=== PATIENT | female | born 1965 | race African-American/Black ===

== ENCOUNTER → 2021-08-31 | Emergency (ER) | payer SELFPAY ==
[~2021-08-31] MED LIST: AZITHROMYCIN 500 MG INJ IVPB ONE; CEFTRIAXONE 1000 MG/VIAL ONE; MORPHINE 4 MG/ML SYR ONE; NA CHLORIDE 0.9% 1,000 ML ONE; NA CHLORIDE 0.9% 250 ML ONE; PANTOPRAZOLE 40 MG INJ ONE
--- OUTSIDE RECORDS SUMMARY | 2021-08-31 08:30 | XMS REPORT | Continuity of Care Document ---
:[address] [facility] t Address [address] [place] [address] Care Team Providers Name Role Phone Referred Attending Clinician Unavailable TATA Attending Clinician Unavailable MARIANO PAYTON Admitting Clinician Unavailable Physician, Primary or Family Admitting Clinician Unavailabl e Payers Payer Name Policy Type Policy Number Effective Date Expiration Date S ource Problems This patient has no known problems. Allergies, Adverse Reactions, Alerts Allergy Allergy Status Severity Reaction(s) Onset Inactive Treating Comm ents Source Name Type Date Date Clinician No Known DA Active U 2010-09 [facility] Allergie 0-28 Clear s 00:00: Vasquez [address] [place] [address] Medications This patient has no known medications. Procedures This patient has no known procedures. Encounters Start End Encounter Admission Attending Care Care Encounter Source Date/Time Date/Time Type Type Clinicians Facility Department ID 2021-03-19 2021-03-19 Outpatient JUSTICE Emperatriz PRAVEEN DIETRICH [id number] [facility] 12:00:00 12:00:00 Self [id number] [facility] 2020-02-28 2020-02-28 Outpatient JUSTICE PAYTON PRAVEEN DIETRICH [id number] [facility] 12:00:00 12:00:00 MELECIO [id number] Norma robledo [facility] Results This patient has no known results.
== END ==
LOC: ER 08:27
DX: Z02.9 Encounter for administrative examinations, unspecified (principal)

== ENCOUNTER 2024-05-17 11:22 | Emergency (ER) | payer OTHER ==
[2024-05-17] MEDS ORDERED: IBUPROFEN 400 MG TAB ONE (12:08)
[2024-05-17] MEDS ORDERED: BUPIVACAINE 0.5% PF 10 ML VIAL ONE (12:08)
[2024-05-17] MEDS ORDERED: HYDROCODONE/APAP 7.5/325 MG TAB ONE (12:09)
[2024-05-17] MEDS ORDERED: TDAP (DIPHTH,PERTUSS(ACELL),TET VAC) 0.5 ML VIAL IMVAC ONE (12:09)
[2024-05-17] MEDS ORDERED: LIDOCAINE 2% MPF 5 ML VIAL ONE (12:09)
--- NOTE | 2024-05-17 13:33 | EDPHYS ---
Physician Documentation [facility] Name: Rosita Ellington Age: 58 yrs Sex: Female : 1965 Arrival Date: 05/17/2024 Time: 11:22 Bed 10 Private MD: ED Physician Acosta Castaneda HPI: 05/17 12:00 This 58 yrs old Black Female presents to ER via Ambulatory with complaints of fish hook cp in finger. 12:00 The patient or guardian reports embedded fish hook right small finger that occurred at cp home while moving fishing gear. 12:00 Associated signs and symptoms: The patient has no apparent associated signs or symptoms.cp Historical: - Allergies: 11:36 No Known Allergies; ll1 - PMHx: 11:36 Asthma; Heart Murmur; ll1 - PSHx: 11:36 section; ll1 - Immunization history:: Adult Immunizations up to date, Last tetanus immunization: > 10 years ago. - Social history:: Smoking status: Patient denies any tobacco usage or history of. ROS: 12:05 Constitutional: HX per HPI cp Exam: 12:05 Head/Face: Normocephalic, atraumatic. cp 12:05 Constitutional: The patient appears in no acute distress, alert, awake, non-toxic, well developed, well nourished, anxious, uncomfortable, 12:05 Chest/axilla: Inspection: normal, 12:05 Cardiovascular: Rate: normal, 12:05 Respiratory: the patient does not display signs of respiratory distress, Respirations: normal, no use of accessory muscles, no retractions, labored breathing, is not present, 12:05 Abdomen/GI: Inspection: abdomen appears normal, 12:05 Musculoskeletal/extremity: Extremities: noted in the right small finger: embedded fish hook noted distal phalanx of right small finger, tender to palpation, minimal bleeding, digit neurovascular intact, ROM: full active range of motion, in the right small finger, Vital Signs: 11:37 BP 127 / 75; Pulse 64; Resp 17; Temp 97.9; Pulse Ox 97% ; Weight 92.99 kg; Height 5 ft. ll1 6 in. ; Pain 10/10; 11:37 Body Mass Index 33.09 (92.99 kg, 167.64 cm) ll1 11:37 Pain Scale: Adult ll1 Procedures: 13:30 Foreign Body Removal: a fishhook, from the distal phalanx right small finger, by push cp through and using lock cutter mejia removed. The patient tolerated the removal well. MDM: 11:40 Patient medically screened. cp 12:00 Differential diagnosis: open fracture, foreign body, nail injury, vascular injury. cp 13:31 Data reviewed: vital signs, nurses notes, and as a result, I will discharge patient. cp 13:31 Counseling: I had a detailed discussion with the patient and/or guardian regarding the cp historical points, exam findings, and any diagnostic results supporting the discharge/admit diagnosis, to return to the emergency department if symptoms worsen or persist or if there are any questions or concerns that arise at home. 13:31 Response to treatment: the patient's symptoms have resolved after treatment, and as a cp result, I will discharge patient. 05/17 11:51 Order name: Wound Care cp Administered Medications: 12:15 Drug: Hydrocodone-Acetaminophen PO (7.5 mg-325 mg) 1 tabs PO once; RASS on ADMIN: ll1 Combtv4, Very Agttd3, Agttd2, Rstlss1, AlertClm0, Drwsy-1, Lt Sdtn-2, Mod Sdtn-3, Dp Sdtn-4, UnArsble-5 {Note: pain 10/10, RASS 0.} Route: PO; 12:15 Drug: Boostrix Tdap IM 0.5 ml IM once; as a single dose Route: IM; Site: left deltoid; ll1 12:15 Drug: Ibuprofen PO 800 mg PO once Route: PO; ll1 Disposition Summary: 05/17/24 13:32 Discharge Ordered Notes: Location: Home cp Problem: new cp Symptoms: have improved cp Condition: Stable cp Diagnosis - Puncture wound with foreign body of finger without damage to nail - right small cp finger Followup: cp - With: Private Physician - When: 2 - 3 days - Reason: Wound Recheck Discharge Instructions: - Discharge Summary Sheet cp - Puncture Wound cp - Good Pine Removal cp Forms: - Medication Reconciliation Form cp - Antibiotic Education cp - Prescription Opioid Use cp - Patient Portal Instructions cp - Leadership Thank You Letter cp Prescriptions: - Anaprox DS 550 mg Oral Tablet - take 1 tablet ORAL route every 12 hours As needed; 20 tablet; Refills: 0, cp Product Selection Permitted - Doxycycline Monohydrate 100 mg Oral tablet - take 1 tablet ORAL route every 12 hours for 7 days; 14 tablet; Refills: 0, cp Product Selection Permitted Addendum: 05/24/2024 15:38 Co-signature as Attending Physician, Acosta Castaneda MD I agree with the assessment and c willett plan of care. Signatures: Dispatcher [employer] EDPA Acosta Castaneda MD MD cha Page, Corey, PA PA Sanjuanita Lombardo RN RN ll1 Corrections: (The following items were deleted from the chart) 05/18 09:58 09:57 Constitutional: HX per HPI cp cp
--- NOTE | 2024-05-17 13:33 | ER ---
Nurse's Notes [facility] Name: Rosita Ellington Age: 58 yrs Sex: Female : 1965 Arrival Date: 05/17/2024 Time: 11:22 Bed 10 Private MD: Diagnosis: Puncture wound with foreign body of finger without damage to nail-right small finger Presentation: 05/17 11:37 Chief complaint: Patient states: Fish hook to R hand 5th digit while cleaning up a 1 house just INTERN ARCHITECT. Coronavirus screen: Client denies travel out of the [place] in the last 14 days. At this time, the client does not indicate any symptoms associated with coronavirus-19. Ebola Screen: Patient denies travel to an Ebola-affected area in the 21 days before illness onset. Initial Sepsis Screen: Does the patient meet any 2 criteria? No. Patient's initial sepsis screen is negative. Does the patient have a suspected source of infection? No. Patient's initial sepsis screen is negative. Risk Assessment: Do you want to hurt yourself or someone else? Patient reports no desire to harm self or others. Onset of symptoms was May 17, 2024. 11:37 Method Of Arrival: Ambulatory 1 11:37 Acuity: ROGER 4 ll1 Triage Assessment: 11:37 General: Appears uncomfortable, Behavior is calm, cooperative, appropriate for age. ll1 Pain: Complains of pain in right hand Pain currently is 10 out of 10 on a pain scale. Quality of pain is described as aching, throbbing. Derm: Reports fish hook R hand 5th digit. Musculoskeletal: Circulation, motion, and sensation intact. Capillary refill < 3 seconds. Historical: - Allergies: 11:36 No Known Allergies; ll1 - PMHx: 11:36 Asthma; Heart Murmur; ll1 - PSHx: 11:36 section; ll1 - Immunization history:: Adult Immunizations up to date, Last tetanus immunization: > 10 years ago. - Social history:: Smoking status: Patient denies any tobacco usage or history of. Vital Signs: 11:37 BP 127 / 75; Pulse 64; Resp 17; Temp 97.9; Pulse Ox 97% ; Weight 92.99 kg; Height 5 ft. ll1 6 in. ; Pain 10/10; 11:37 Body Mass Index 33.09 (92.99 kg, 167.64 cm) 1 11:37 Pain Scale: Adult 1 ED Course: 11:25 Patient arrived in ED. ra3 11:36 Arm band placed on. ll1 11:38 Triage completed. 1 11:40 Acosta Schaeffer PA is PHCP. cp 11:40 Acosta Castaneda MD is Attending Physician. cp Administered Medications: 12:15 Drug: Hydrocodone-Acetaminophen PO (7.5 mg-325 mg) 1 tabs PO once; RASS on ADMIN: ll1 Combtv4, Very Agttd3, Agttd2, Rstlss1, AlertClm0, Drwsy-1, Lt Sdtn-2, Mod Sdtn-3, Dp Sdtn-4, UnArsble-5 {Note: pain 10/10, RASS 0.} Route: PO; 12:15 Drug: Boostrix Tdap IM 0.5 ml IM once; as a single dose Route: IM; Site: left deltoid; 1 12:15 Drug: Ibuprofen PO 800 mg PO once Route: PO; 1 Outcome: 13:32 Discharge ordered by . cp 14:04 Patient left the ED. hb Signatures: Acosta Schaeffer PA PA cp Denisse Odom RN RN Sanjuanita Mason RN RN [facility] Emmy Trujillo ra3
[2024-05-17 14:10] VITALS: BP 127/75; TEMP 97.9; O2SAT 97
== END 2024-05-17 14:04 | disposition home or self-care (01) ==
LOC: ER 11:22
DX: S61.246A Puncture wound with foreign body of right little finger without damage to nail, initial encounter (principal)
CPT/HCPCS: 96372; 99284; J2001

== ENCOUNTER 2025-01-11 08:33 | Inpatient (IN) | payer SELFPAY ==
[2025-01-11] MEDS ORDERED: IPRATROPIUM BROM 0.5MG/2.5ML ONE (09:23)
[2025-01-11] MEDS ORDERED: METHYLPREDNISOLONE 125 MG INJ ONE (09:23)
[2025-01-11] MEDS ORDERED: CEFTRIAXONE 2000 MG/VIAL ONE (09:24)
[2025-01-11] MEDS ORDERED: AZITHROMYCIN 500 MG INJ IVPB ONE (09:24)
[2025-01-11] MEDS ORDERED: FAMOTIDINE 20 MG/2 ML VIAL IV ONE (09:24)
[2025-01-11] MEDS ORDERED: NA CHLORIDE 0.9% 250 ML ONE (09:24)
[2025-01-11] MEDS ORDERED: NA CHLORIDE 0.9% 100 ML ONE (09:24)
[2025-01-11] MEDS ORDERED: LEVALBUTEROL 1.25 MG/3 ML NEB ONE (09:24)
[2025-01-11] MEDS ORDERED: NA CHLORIDE 0.9% 1,000 ML ONE (09:25)
--- NOTE | 2025-01-11 09:34 | RAD REPORT ---
EXAMINATION: TWO VIEW CHEST XR CLINICAL INDICATION: COUGH TECHNIQUE: 2 views of the chest was performed. COMPARISON: No prior exam. FINDINGS: Patchy airspace opacity is seen in the right middle lobe laterally likely representing pneumonia. Krystian gs otherwise clear. The heart is normal in size. No displaced fractures evident. IMPRESSION: Moderate right middle lobe pneumonia.
--- NOTE | 2025-01-11 09:38 | EDPHYS ---
Physician Documentation [facility] Name: Rosita Ellington Age: 59 yrs Sex: Female : 1965 Arrival Date: 01/11/2025 Time: 08:33 Bed 13 Private MD: ED Physician Acosta Castaneda HPI: 01/11 09:28 This 59 yrs old Black Female presents to ER via Ambulatory with complaints of Fever, caren Chest Pain, Breathing Difficulty. 09:28 The patient reports fever, that was measured at 101 degrees Fahrenheit. Onset: The caren symptoms/episode began/occurred 4 day(s) ago. Modifying factors: there are no obvious modifying factors. Associated signs and symptoms: Pertinent positives: chills, cough. Severity of symptoms: At their worst the symptoms were moderate in the emergency department the symptoms are unchanged. The patient has not experienced similar symptoms in the past. Historical: - Allergies: 08:38 No Known Allergies; ll1 - PMHx: 08:38 Asthma; Heart Murmur; ll1 - PSHx: 08:38 section; ll1 - Immunization history:: Adult Immunizations up to date. - Social history:: Smoking status: Patient denies any tobacco usage or history of. ROS: 09:32 Constitutional: Negative for fever, chills, and weight loss, Eyes: Negative for injury, caren pain, redness, and discharge, ENT: Negative for injury, pain, and discharge, Neck: Negative for injury, pain, and swelling, Cardiovascular: Negative for chest pain, palpitations, and edema, Abdomen/GI: Negative for abdominal pain, nausea, vomiting, diarrhea, and constipation, Back: Negative for injury and pain, : Negative for injury, bleeding, discharge, and swelling, MS/Extremity: Negative for injury and deformity, Skin: Negative for injury, rash, and discoloration, Neuro: Negative for headache, weakness, numbness, tingling, and seizure, Psych: Negative for depression, anxiety, suicide ideation, homicidal ideation, and hallucinations, Allergy/Immunology: Negative for hives, rash, and allergies, Endocrine: Negative for neck swelling, polydipsia, polyuria, polyphagia, and marked weight changes, Hematologic/Lymphatic: Negative for swollen nodes, abnormal bleeding, and unusual bruising, 09:32 Respiratory: Positive for cough, "sounds productive", shortness of breath, Exam: 09:32 Head/Face: Normocephalic, atraumatic. Eyes: Pupils equal round and reactive to light, caren extra-ocular motions intact. Lids and lashes normal. Conjunctiva and sclera are non-icteric and not injected. Cornea within normal limits. Periorbital areas with no swelling, redness, or edema. ENT: Nares patent. No nasal discharge, no septal abnormalities noted. Tympanic membranes are normal and external auditory canals are clear. Oropharynx with no redness, swelling, or masses, exudates, or evidence of obstruction, uvula midline. Mucous membranes moist. Neck: Trachea midline, no thyromegaly or masses palpated, and no cervical lymphadenopathy. Supple, full range of motion without nuchal rigidity, or vertebral point tenderness. No Meningismus. Chest/axilla: Normal chest wall appearance and motion. Nontender with no deformity. No lesions are appreciated. Cardiovascular: Regular rate and rhythm with a normal S1 and S2. No gallops, murmurs, or rubs. Normal PMI, no JVD. No pulse deficits. Abdomen/GI: Soft, non-tender, with normal bowel sounds. No distension or tympany. No guarding or rebound. No evidence of tenderness throughout. Back: No spinal tenderness. No costovertebral tenderness. Full range of motion. Female : Normal external genitalia. Skin: Warm, dry with normal turgor. Normal color with no rashes, no lesions, and no evidence of cellulitis. MS/ Extremity: Pulses equal, no cyanosis. Neurovascular intact. Full, normal range of motion., bilateral aka Neuro: Awake and alert, GCS 15, oriented to person, place, time, and situation. Cranial nerves II-XII grossly intact. Motor strength 5/5 in all extremities. Sensory grossly intact. Cerebellar exam normal. Normal gait. Psych: Awake, alert, with orientation to person, place and time. Behavior, mood, and affect are within normal limits. 09:32 Constitutional: The patient appears febrile, 09:32 Respiratory: the patient does not display signs of respiratory distress, Respirations: no acute changes, Breath sounds: rales, that are moderate, are heard in the right posterior middle lobe and right posterior lower lobe, bronchial sounds, decreased breath sounds, rhonchi, wheezing: expiratory is scattered, is heard in the right posterior middle lobe and right posterior lower lobe, 09:38 ECG was reviewed by the Attending Physician. [facility] 10:08 ECG was reviewed by the Attending Physician. [facility] 10:09 ECG was reviewed by the Attending Physician. [facility] Vital Signs: 08:42 BP 131 / 82; Pulse 83; Resp 18; Temp 98.6(O); Pulse Ox 97% on R/A; Weight 90.26 kg; ll1 Height 5 ft. 6 in. ; Pain 10/10; 12:30 BP 126 / 76; Pulse 98; Resp 20; Pulse Ox 90% on R/A; kj2 14:10 BP 127 / 75; Pulse 98; Resp 20; Pulse Ox 97% 2 lpm ; kj2 08:42 Body Mass Index 32.12 (90.26 kg, 167.64 cm) ll1 08:42 Pain Scale: Adult ll1 MDM: 08:52 Medical Screening Exam initiated caren 09:34 Antibiotic administration: Rocephin and Zithromax given. Differential diagnosis: Anemia caren asthma, Bronchitis CHF exacerbation, viral Infection, bacterial infection, URI, bronchitis, pneumonia. Immunization status: Influenza vaccine: within last 5 years. Data reviewed: vital signs, nurses notes, lab test result(s), EKG, radiologic studies, plain films. Consideration of Admission/Observation Escalation of care including admission/observation considered. I considered the following discharge prescriptions or medication management in the emergency department Medications were administered in the Emergency Department. See MAR. Independent interpretation of the following test(s) in the Emergency Department X-Ray: My interpretation is cxr rll. Test considered but Not performed: CT: no ct chest. Historians other than the Patient: pt and family well informed. 01/11 08:55 Order name: Basic Metabolic Panel; Complete Time: 10:43 [facility] 01/11 08:55 Order name: CBC with Diff; Complete Time: 10:43 [facility] 01/11 08:55 Order name: LFT's; Complete Time: 10:43 [facility] 01/11 08:55 Order name: Magnesium; Complete Time: 10:43 [facility] 01/11 08:55 Order name: NT PRO-BNP; Complete Time: 10:43 [facility] 01/11 08:55 Order name: PT-INR; Complete Time: 10:43 [facility] 01/11 08:55 Order name: Troponin HS; Complete Time: 10:43 [facility] 01/11 08:55 Order name: Blood Culture Adult (2) [facility] 01/11 08:55 Order name: Lactate w/ 2H reflex if indic.; Complete Time: 10:43 [facility] 01/11 10:47 Order name: CBC with Automated Diff [facility] 01/11 10:47 Order name: Comprehensive Metabolic Panel [facility] 01/11 10:47 Order name: Hemoglobin A1c [facility] 01/11 10:47 Order name: Magnesium [facility] 01/11 10:47 Order name: NT PRO-BNP [facility] 01/11 10:47 Order name: Procalcitonin [facility] 01/11 10:52 Order name: ABG Arterial Blood Gas [facility] 01/11 10:52 Order name: ABG Arterial Blood Gas [facility] 01/11 10:52 Order name: Lipid Profile [facility] 01/11 10:52 Order name: Lipid Profile [facility] 01/11 08:55 Order name: Chest Pa And Lat (2 Views) XRAY; Complete Time: 09:52 [facility] 01/11 10:46 Order name: Thorax W/ Con; Complete Time: 11:39 [facility] 01/11 10:52 Order name: CONS Physician Consult [facility] 01/11 08:55 Order name: Cardiac monitoring; Complete Time: 09:12 [facility] 01/11 08:55 Order name: EKG - Nurse/Tech; Complete Time: 09:13 [facility] 01/11 08:55 Order name: IV Saline Lock; Complete Time: 09:12 [facility] 01/11 08:55 Order name: Labs collected and sent; Complete Time: 10:17 [facility] 01/11 08:55 Order name: O2 Per Protocol; Complete Time: 09:13 [facility] 01/11 08:55 Order name: O2 Sat Monitoring; Complete Time: 09:13 [facility] EC:09 Rate is 85 beats/min. Rhythm is regular. QRS Molino is Normal. [place] interval is normal. QRS caren interval is normal. QT interval is normal. No Q waves. T waves are Normal. No ST changes noted. Clinical impression: NSR w/ Non-specific ST/T Changes and No evidence of ischemia. Interpreted by me. Reviewed by me. Administered Medications: 10:15 Drug: MethylPrednisoLONE IVP 125 mg IVP once Route: IVP; Site: left antecubital; iw 10:48 Follow up: Response: No adverse reaction ld1 10:15 Drug: Famotidine IVP 20 mg IVP once; dilute with 10 mL 0.9% NaCl; give over 2 minutes iw Route: IVP; Site: left antecubital; 10:49 Follow up: Response: No adverse reaction ld1 10:16 Drug: Levalbuterol Inhalation 3.75 mg Inhalation once Route: Inhalation; iw 10:49 Follow up: Response: No adverse reaction ld1 10:16 Drug: Ipratropium Inhalation Aerosol 0.5 mg Inhalation once Route: Inhalation; iw 10:50 Follow up: Response: No adverse reaction ld1 10:16 Drug: Rocephin IV 2 grams IV at per protocol once; Given slow IV push per pharmacy iw instructions Route: IV; Rate: per protocol; Site: left antecubital; 10:48 Follow up: Response: No adverse reaction; IV Status: Completed infusion; IV Intake: ld1 100ml 10:48 Drug: Zithromax IVPB 500 mg IVPB once over 1 hrs; mix in 250 mL NS Route: IVPB; Infused ld1 Over: 1 hrs; Site: left antecubital; 15:09 Follow up: IV Status: Completed infusion; IV Intake: 250ml kj2 10:49 Drug: NS 0.9% IV (30 ml/kg) 30 ml/kg IV at bolus once; Sepsis Protocol; to be given as ld1 a bolus over 90 minutes Route: IV; Rate: bolus; Site: left antecubital; 15:10 Follow up: IV Status: Completed infusion; IV Intake: 2750ml kj2 11:08 Drug: Ondansetron IVP 4 mg IVP once; over 2 minutes VERBAL ORDER DENNIS POWERS Route: IVP; ld1 Site: left antecubital; 15:08 Follow up: Response: No adverse reaction kj2 11:09 Drug: Potassium PO Effervescent Tablet 50 mEq PO once; dissolve in 4 ounces of water or ld1 juice Route: PO; 15:08 Follow up: Response: No adverse reaction kj2 Disposition Summary: 01/11/25 09:38 Hospitalization Ordered Notes: Hospitalization Status: Inpatient Admission caren Provider: Jose Miguel Flynn cha Location: Telemetry/MedSurg (Inpatient) caren Condition: Fair caren Problem: new caren Symptoms: have improved caren Bed/Room Type: Standard caren Room Assignment: 220(01/11/25 15:53) em1 Diagnosis - Fever, unspecified caren - Pneumonia due to other specified bacteria - right lower lobe caren - Dyspnea caren - Pleurisy caren - Hypokalemia caren Forms: - Medication Reconciliation Form caren - SBAR form caren - Leadership Thank You Letter caren Signatures: Dispatcher [employer] EDAcosta Hawthorne MD MD cha Williams, Irene, RN RN iw Sean, Landon em1 Dick, Dennis, ROUTE DRIVER SALESPERSON-C ROUTE DRIVER SALESPERSON-Cla1 Sanjuanita Santillan RN RN ll1 Uyen Quan RN RN ld1 Kaitlyn Germain RN kj2 Corrections: (The following items were deleted from the chart) 08:56 08:56 BASIC METABOLIC PANEL+C.LAB.BRZ ordered. EDMS EDMS 08:56 08:56 CBC+H.LAB.BRZ ordered. EDMS EDMS 08:56 08:56 HEPATIC FUNCTION+C.LAB.BRZ ordered. EDMS EDMS 08:56 08:56 MAGNESIUM+C.LAB.BRZ ordered. EDMS EDMS 08:56 08:56 PROBNP+C.LAB.BRZ ordered. EDMS EDMS 08:56 08:56 PROTIME (+INR)+COAG.LAB.BRZ ordered. EDMS EDMS 08:56 08:56 Troponin High Sensitivity+C.LAB.BRZ ordered. EDMS EDMS 08:56 08:56 BLOOD CULTURE*+BA.LAB.BRZ ordered. EDMS EDMS 08:56 08:56 LACTATE+C.LAB.BRZ ordered. EDMS EDMS 08:56 08:56 Chest Pa And Lat (2 Views)+RAD.RAD.BRZ ordered. EDMN EDMS 10:09 09:38 Rate is 85 beats/min. Rhythm is regular. QRS Molino is Normal. AZ interval is caren normal. QRS interval is normal. QT interval is normal. No Q waves. T waves are Normal. No ST changes noted. Clinical impression: NSR w/ Non-specific ST/T Changes and No evidence of ischemia. Interpreted by me. Reviewed by me. caren 10:10 10:08 Rate is 69 beats/min. Rhythm is regular. QRS Molino is Normal. AZ interval is caren normal. QRS interval is normal. QT interval is normal. No Q waves. T waves are Normal. No ST changes noted. Clinical impression: Normal ECG and No evidence of ischemia. Interpreted by me. Reviewed by me. caren 15:53 09:38 [facility] em1
--- NOTE | 2025-01-11 09:38 | ER ---
Nurse's Notes [facility] Name: Rosita Ellington Age: 59 yrs Sex: Female : 1965 Arrival Date: 01/11/2025 Time: 08:33 Bed 13 Private MD: Diagnosis: Fever, unspecified;Pneumonia due to other specified bacteria-right lower lobe;Dyspnea;Pleurisy;Hypokalemia Presentation: 01/11 08:42 Chief complaint: Patient states: Cough, fever, JACOBO worsening since Sunday. + nausea. ll1 Low O2 sats at home. Coronavirus screen: Client denies travel out of the [place] in the last 14 days. congestion, difficulty breathing, fever, shortness of breath, Client presents with at least one sign or symptom that may indicate coronavirus-19. Standard/surgical mask placed on the client. Ebola Screen: Patient denies travel to an Ebola-affected area in the 21 days before illness onset. Initial Sepsis Screen: Does the patient meet any 2 criteria? No. Patient's initial sepsis screen is negative. Does the patient have a suspected source of infection? No. Patient's initial sepsis screen is negative. Risk Assessment: Do you want to hurt yourself or someone else? Patient reports no desire to harm self or others. Onset of symptoms was January 07, 2025. 08:42 Method Of Arrival: Ambulatory ll1 08:42 Acuity: ROGER 3 ll1 Historical: - Allergies: 08:38 No Known Allergies; ll1 - PMHx: 08:38 Asthma; Heart Murmur; ll1 - PSHx: 08:38 section; ll1 - Immunization history:: Adult Immunizations up to date. - Social history:: Smoking status: Patient denies any tobacco usage or history of. Screenin:26 [facility] ED Fall Risk Assessment (Adult) History of falling in the last 3 months, iw including since admission No falls in past 3 months (0 pts) Confusion or Disorientation No (0 pts) Intoxicated or Sedated No (0 pts) Impaired Gait No (0 pts) Mobility Assist Device Used No (0 pt) Altered Elimination No (0 pt) Score/Fall Risk Level 0 - 2 = Low Risk Oriented to surroundings, Maintained a safe environment. Abuse screen: Denies threats or abuse. Nutritional screening: No deficits noted. Tuberculosis screening: No symptoms or risk factors identified. Assessment: 10:25 General: Appears in no apparent distress. Behavior is calm, cooperative. Pain: Denies iw pain. Pain does not radiate. Pain: Quality of pain is described as Pain began. Neuro: Level of Consciousness is awake, alert, obeys commands, Oriented to person, place, time, situation, Moves all extremities. Full function. Cardiovascular: Patient's skin is warm and dry. Respiratory: Respiratory effort is even, unlabored. Respiratory: the patient has mild shortness of breath Parent/caregiver reports the patient having shortness of breath on exertion cough that is non-productive. GI: Abdomen is non-distended. 11:25 Reassessment: Patient appears in no apparent distress at this time. No changes from ld1 previously documented assessment. Patient and/or family updated on plan of care and expected duration. Pain level reassessed. Patient is alert, oriented x 3, equal unlabored respirations, skin warm/dry/pink. Patient denies pain at this time. 12:30 Reassessment: Patient appears in no apparent distress at this time. Patient and/or kj2 family updated on plan of care and expected duration. Pain level reassessed. Patient is alert, oriented x 3, equal unlabored respirations, skin warm/dry/pink. 12:30 Reassessment: pt placed on 2L O2 via N/C due to O2 sats ranging between 88-92 on room kj2 air. Sat raised to 96% on 2 L. 13:30 Reassessment: Patient appears in no apparent distress at this time. Patient and/or kj2 family updated on plan of care and expected duration. Pain level reassessed. Patient is alert, oriented x 3, equal unlabored respirations, skin warm/dry/pink. 14:14 Reassessment: Patient appears in no apparent distress at this time. Patient and/or kj2 family updated on plan of care and expected duration. Pain level reassessed. Patient is alert, oriented x 3, equal unlabored respirations, skin warm/dry/pink. Vital Signs: 08:42 BP 131 / 82; Pulse 83; Resp 18; Temp 98.6(O); Pulse Ox 97% on R/A; Weight 90.26 kg; ll1 Height 5 ft. 6 in. ; Pain 10/10; 12:30 BP 126 / 76; Pulse 98; Resp 20; Pulse Ox 90% on R/A; kj2 14:10 BP 127 / 75; Pulse 98; Resp 20; Pulse Ox 97% 2 lpm ; kj2 08:42 Body Mass Index 32.12 (90.26 kg, 167.64 cm) ll1 08:42 Pain Scale: Adult ll1 ED Course: 08:36 Patient arrived in ED. al6 08:37 Arm band placed on Patient placed in an exam room, on a stretcher. ll1 08:44 Triage completed. ll1 08:52 Acosta Castaneda MD is Attending Physician. caren 09:33 Chest Pa And Lat (2 Views) XRAY In Process Unspecified. EDMS 09:37 Jose Miguel Flynn MD is Hospitalizing Provider. caren 09:51 Initial lab(s) drawn, by me, sent to lab. First set of blood cultures drawn by me. iw Inserted saline lock: 20 gauge in left antecubital area, using aseptic technique. Blood collected. Flushed with 10 mL NS. Patient maintains SpO2 saturation greater than 95% on room air. 10:21 Uyen Quan, RN is Primary Nurse. ld1 10:27 Patient has correct armband on for positive identification. Bed in low position. Call iw light in reach. Side rails up X2. Provided Education on: need for admit . Client placed on continuous cardiac and pulse oximetry monitoring. NIBP monitoring applied. monitor and storage bin tender on. Administered Medications: 10:15 Drug: MethylPrednisoLONE IVP 125 mg IVP once Route: IVP; Site: left antecubital; iw 10:48 Follow up: Response: No adverse reaction ld1 10:15 Drug: Famotidine IVP 20 mg IVP once; dilute with 10 mL 0.9% NaCl; give over 2 minutes iw Route: IVP; Site: left antecubital; 10:49 Follow up: Response: No adverse reaction ld1 10:16 Drug: Levalbuterol Inhalation 3.75 mg Inhalation once Route: Inhalation; iw 10:49 Follow up: Response: No adverse reaction ld1 10:16 Drug: Ipratropium Inhalation Aerosol 0.5 mg Inhalation once Route: Inhalation; iw 10:50 Follow up: Response: No adverse reaction ld1 10:16 Drug: Rocephin IV 2 grams IV at per protocol once; Given slow IV push per pharmacy iw instructions Route: IV; Rate: per protocol; Site: left antecubital; 10:48 Follow up: Response: No adverse reaction; IV Status: Completed infusion; IV Intake: ld1 100ml 10:48 Drug: Zithromax IVPB 500 mg IVPB once over 1 hrs; mix in 250 mL NS Route: IVPB; Infused ld1 Over: 1 hrs; Site: left antecubital; 15:09 Follow up: IV Status: Completed infusion; IV Intake: 250ml kj2 10:49 Drug: NS 0.9% IV (30 ml/kg) 30 ml/kg IV at bolus once; Sepsis Protocol; to be given as ld1 a bolus over 90 minutes Route: IV; Rate: bolus; Site: left antecubital; 15:10 Follow up: IV Status: Completed infusion; IV Intake: 2750ml kj2 11:08 Drug: Ondansetron IVP 4 mg IVP once; over 2 minutes VERBAL ORDER MARY BETH ATTEMA Route: IVP; ld1 Site: left antecubital; 15:08 Follow up: Response: No adverse reaction kj2 11:09 Drug: Potassium PO Effervescent Tablet 50 mEq PO once; dissolve in 4 ounces of water or ld1 juice Route: PO; 15:08 Follow up: Response: No adverse reaction kj2 Intake: 10:48 IV: 100ml; Total: 100ml. ld1 15:09 IV: 250ml; Total: 350ml. kj2 15:10 IV: 2750ml; Total: 3100ml. kj2 Outcome: 09:38 Decision to Hospitalize by Provider. caren 16:46 Patient left the ED. 1 Signatures: Dispatcher [employer] Acosta Martinez MD MD cha Williams, Irene RN Sanjuanita Felder RN RN ll1 Uyen Quan RN RN ld1 Kaityln Germain RN RN kj2 Shruthi Suazo6
[2025-01-11 10:10] LABS: Absolute Lymphocytes (CBC) 1.9 K/uL (0.7-4.9); Absolute Monocytes 0.4 K/uL (0.1-1.3); Absolute Neutrophil 2.7 K/uL (1.8-8.0); Basophils % 0.6 % (0-1.3); Eosinophils % 0.2 % (0-4.4); Hematocrit 34.8 % (36.0-45.0); Hemoglobin 11.7 g/dL (12.0-15.0); Lymphocytes % 38.6 % (15.3-44.8); MCH 29.1 pg (27.0-35.0); MCHC 33.7 g/dL (32.0-36.0); MCV 86.5 fL (80-100); MPV 8.4 fL (7.6-11.3); Monocytes % 7.2 % (3.3-12.3); Neutrophils % 53.4 % (41.7-73.7); Nucleated Red Blood Cells % 0.1 % (0-0); PT Prothrombin Time 14.6 SECONDS (10-13.0); Platelets 223 thou/uL (152-406); Protime INR 1.3; RBC Red Blood Cell Count 4.03 M/uL (3.86-4.86); Red Cell Distribution Width 12.8 % (12.1-15.2)
[2025-01-11 10:24] LABS: ALT/SGPT 20 U/L (13-56); AST/SGOT 19 U/L (15-37); Albumin 3.5 g/dL (3.4-5.0); Albumin/Globulin Ratio 0.8 (1.1-1.8); Alkaline Phosphatase 60 U/L (45-117); Anion Gap 8.4 mEq/L (5.0-15.0); BUN Blood Urea Nitrogen 8 mg/dL (7-18); Bicarbonate 28 mEq/L (21-32); Bilirubin Direct 0.2 mg/dL (0-0.2); Bilirubin Indirect, Calculated 0.6 mg/dL (0.2-0.8); Bilirubin Total 0.8 mg/dL (0.2-1.0); Globulin 4.5 g/dL (2.3-3.5); Glomerular Filtration Rate 100 ml/min (=/>90); Glucose Level 98 mg/dL (74-106); Magnesium 1.9 mg/dL (1.6-2.4); NT PRO-BNP 11 pg/mL (<125); Potassium 3.4 mEq/L (3.5-5.1); Sodium Level 136 mEq/L (136-145)
[2025-01-11 10:29] LABS: Troponin High Sensitivity < 3.0 pg/mL (<58.9)
[2025-01-11] MEDS ORDERED: ACETAMINOPHEN 500 MG TAB PO PRN (10:45)
[2025-01-11] MEDS ORDERED: ONDANSETRON 4 MG/2 ML VIAL IV PRN (10:45)
--- NOTE | 2025-01-11 10:51 | P.HP ---
Certification for Inpatient Patient admitted to: Inpatient With expected LOS: >2 Midnights Patient will require the following post-hospital care: None Practitioner: I am a practitioner with admitting privileges, knowledge of patient current condition, hospital course, and medical plan of care. Services: Services provided to patient in accordance with Admission requirements found in Title 42 Section 412.3 of the Code of Federal Regulations Patient History Date of Service: 01/11/25 Reason for admission: Right middle lobe pneumonia History of Present Illness: Patient is a 51-year-old female came to the hospital with fever along with shortness of breath. 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 She started feeling bad that evening and then the next day she was running fever with chills. She was given some antibiotics but her clinical symptoms were not improving so she came into the ER for further evaluation. Her chest x-ray revealed right middle lobe pneumonia. We did a CT scan which showed infection of the right upper, middle, and lower lobe. Patient's procalcitonin level is pending. Pulmonary consultation pending. Patient will be admitted for inpatient hospitalization. Allergies No Known Allergies Allergy (Unverified 10/25/16 13:14) Home Medications: Escitalopram Oxalate 10 mg PO DAILY 01/11/25 - Past Medical/Surgical History -: Depression Past Surgical History: Patient denies surgical history - Family History Father Family History: Reviewed- Non-Contributory - Social History Smoking Status: Former smoker Alcohol use: No CD- Drugs: No Review of Systems 10-point ROS is otherwise unremarkable Physical Examination - Vital Signs Temperature: 80 F Blood Pressure: 110/70 Pulse: 80 Respirations: 18 Pulse Ox (%): 96 - Physical Exam General: Alert, In no apparent distress, Oriented x3 HEENT: Atraumatic, PERRLA, Mucous membr. moist/pink, EOMI, Sclerae nonicteric Neck: Supple, 2+ carotid pulse no bruit, No LAD, Without JVD or thyroid abnormality Respiratory: Other (Rhonchi of the right lungs) Cardiovascular: Regular rate/rhythm, Normal S1 S2, No murmurs Gastrointestinal: Normal bowel sounds, Soft and benign, Non-distended, No tenderness, No rebound, No guarding Musculoskeletal: No clubbing, No swelling, No tenderness Integumentary: No rashes Neurological: Normal gait, Normal speech, Normal strength at 5/5 x4 extr, Normal tone, Sensation intact, Cranial nerves 3-12 intact, Normal affect Lymphatics: No axilla or inguinal lymphadenopathy - Studies Laboratory Data (last 24 hrs) 01/11/25 01/11/25 01/11/25 09:51 09:51 09:51 WBC 5.00 Hgb 11.7 L Hct 34.8 L Plt Count 223 PT 14.6 H INR 1.30 Sodium 136 Potassium 3.4 L BUN 8 Creatinine 0.70 Glucose 98 Magnesium 1.9 Total Bilirubin 0.8 AST 19 ALT 20 Alkaline Phosphatase 60 Assessment & Plan - Problems (Diagnosis) (1) Pneumonia involving right lung Current Visit: Yes Status: Acute Qualifiers: Lung location: unspecified part of lung - Plan 1. Continue with IV antibiotics 2. Awaiting sputum and blood culture 3. Repeat chest x-ray 4. Will proceed with CT scan of the chest which has been reviewed 5. Respiratory isolation is not needed 6. Continue with nebs as needed 7. O2 per protocol 8. Continue with gentle hydration 9. Repeat labs including CBC and renal function in a.m. Procalcitonin level pending 10. GI and DVT prophylaxis Discharge Plan: Home Plan to discharge in: Greater than 2 days - Advance Directives Does patient have a Living Will: No Does patient have a Durable POA for Healthcare: No - Code Status/Comfort Care Code Status Assessed: Yes Code Status: Full Code Comfort Measures: Palliative Care Critical Care: No Time Spent Managing PTS Care (In Minutes): 45
[2025-01-11] MEDS ORDERED: ONDANSETRON 4 MG/2 ML VIAL ONE (10:55)
[2025-01-11] MEDS ORDERED: POTASSIUM 25 MEQ EFFERV TAB ONE (10:55)
[2025-01-11] MEDS: NA CHLORIDE 0.9% 1,000 ML IV SCH (11:00)
--- NOTE | 2025-01-11 11:29 | RAD REPORT ---
EXAM: CT CHEST WITH CONTRAST CLINICAL INDICATION: RML pneumonia; obstructive lesion TECHNIQUE: Routine CT scan of the chest with intravenous contrast. One or more of the following dose reduction techniques were used: Automated exposure control, adjustment of the mA and/or kV according to patient size, and/or iterative reconstruction. Unless otherwise specified, incidental fi ndings do not require dedicated imaging follow-up. COMPARISON: Recent chest radiograph FINDINGS: LUNGS: Moderate tree-in-bud and airspace infiltrate pattern is seen in the posterior right upper lobe , right middle lobe and right lower lobe compatible with infection/pneumonia with endobronchial spread. The left lung appears clear. No evidence of obstructing hilar or endobronchial mass lesion. PLEURA: No pleural effusion. No pneumothorax. MEDIASTINUM AND LYMPH NODES: No mediastinal mass or fluid collection. Normal size mediastinal, hilar, and axillary lymph nodes. OSSEOUS STRUCTURES AND CHEST WALL: Intact. UPPER ABDOMEN: Mild fatty liver. IMPRESSION: Patchy airspace opacities and tree-in-bud opacities as detailed in the right lung most compatible wit h infection/pneumonia, with endobronchial spread. No obstructing hilar mass.
[2025-01-11] MEDS: IPRATROPIUM BROM 0.5MG/2.5ML NEB SCH (13:00)
[2025-01-11] MEDS: ALBUTEROL 2.5 MG/3 ML NEB SOL NEB SCH (13:00)
[2025-01-11 17:06] VITALS: BMI 31.9
[2025-01-11] MEDS: POTASSIUM CL SA 10 MEQ TAB PO ONE (17:48)
[2025-01-12] MEDS: MELATONIN 5 MG TABLET PO PRN (01:48)
[2025-01-12 05:59] LABS: Blood Gas Oxyhemoglobin 91.8 % (94-97); Blood O2 Saturation 93.4 % (92-98.5)
[2025-01-12 06:20] LABS: Absolute Lymphocytes (CBC) 1.7 K/uL (0.7-4.9); Absolute Monocytes 0.5 K/uL (0.1-1.3); Absolute Neutrophil 2.8 K/uL (1.8-8.0); Basophils % 0.5 % (0-1.3); Eosinophils % 0.1 % (0-4.4); Hematocrit 29.6 % (36.0-45.0); Hemoglobin 10.1 g/dL (12.0-15.0); Lymphocytes % 33.9 % (15.3-44.8); MCH 28.9 pg (27.0-35.0); MPV 8.1 fL (7.6-11.3); Monocytes % 10.2 % (3.3-12.3); Neutrophils % 55.3 % (41.7-73.7); Nucleated Red Blood Cells % 0.2 % (0-0); Platelets 247 thou/uL (152-406); RBC Red Blood Cell Count 3.49 M/uL (3.86-4.86); Red Cell Distribution Width 12.6 % (12.1-15.2)
[2025-01-12 06:45] LABS: Albumin 3.1 g/dL (3.4-5.0); Albumin/Globulin Ratio 0.8 (1.1-1.8); Bilirubin Total 0.5 mg/dL (0.2-1.0); Globulin 3.8 g/dL (2.3-3.5); Protein, Total 6.9 g/dL (6.4-8.2)
[2025-01-12] MEDS: CEFTRIAXONE 1,000 MG in NA CHLORIDE 0.9% 50 ML IVPB SCH (08:17)
[2025-01-12] MEDS: ENOXAPARIN 40 MG/0.4 ML SQ SCH (08:20)
[2025-01-12] MEDS: AZITHROMYCIN IV 500 MG in NA CHLORIDE 0.9% 250 ML IVPB SCH (09:11)
--- NOTE | 2025-01-12 12:07 | EKG ---
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
[2025-01-12] MEDS: METHYLPREDNISOLONE 40 MG INJ IV ONE (16:20)
--- NOTE | 2025-01-13 07:20 | P.PN ---
Date of Service: 01/12/25 Subjective Patient is clinically doing better. Oxygenation has improved. Pulmonary was consulted. Awaiting for pulmonary recommendation. Anticipate discharge in a.m. for viral pneumonia as procalcitonin level is negative. Continue with antibiotic regimen for secondary bacterial infection. Continue with steroids and await pulmonary recommendations prior to discharge. Physical Examination - Vital Signs reviewed - Physical Exam General: Alert, In no apparent distress, Oriented x3 Respiratory: Other (Rhonchi of the right lungs) Cardiovascular: Regular rate/rhythm, Normal S1 S2, No murmurs Gastrointestinal: Normal bowel sounds, Soft and benign, Non-distended, No tenderness, No rebound, No guarding Musculoskeletal: No clubbing, No swelling, No tenderness Neurological: No focal deficits Assessment & Plan - Problems (Diagnosis) (1) Pneumonia involving right lung Current Visit: Yes Status: Acute Qualifiers: Lung location: unspecified part of lung - Plan Continue with plan of care as mentioned below: 1. Continue with IV antibiotics 2. Awaiting cultures 3. May need chest x-ray 4. CT scan of the chest has been reviewed 5. Respiratory isolation is not needed 6. Continue with nebs as needed 7. O2 per protocol 8. GI and DVT prophylaxis Discharge Plan: Home Plan to discharge in: Greater than 2 days - Advance Directives Does patient have a Living Will: No Does patient have a Durable POA for Healthcare: No - Code Status/Comfort Care Code Status Assessed: Yes Code Status: Full Code Critical Care: No Time Spent Managing PTS Care (In Minutes): 35
[2025-01-13] MEDS: predniSONE 20 MG TAB PO SCH (09:05)
[2025-01-13] MEDS: levoFLOXacin 750 MG TAB PO SCH (09:05)
[2025-01-13 09:54] VITALS: O2SAT 93
--- NOTE | 2025-01-13 12:03 | P.DS ---
Admission Date: 01/11/25 Discharge Date: 01/13/25 Disposition: ROUTINE DISCHARGE Discharge Condition: GOOD Reason for Admission: Right middle lobe pneumonia Hospital Course: 59-year-old female with minimal past medical history who presented with shortness of breath found to have right lower lobe pneumonia. She was admitted to the hospital and started on IV antibiotics her clinical condition improved with the course of her stay. Pulmonology was consulted. She will be discharge with 7 days of Levaquin. She will follow-up with pulmonology as outpatient. The remainder of her hospital course is without any issues and she is medically optimized for discharge Vital Signs/Physical Exam: Temp Pulse Resp BP Pulse Ox 97.9 F 64 20 133/64 92 01/13/25 08:00 01/13/25 08:00 01/13/25 08:00 01/13/25 08:00 01/13/25 08:00 General: Alert, In no apparent distress HEENT: Atraumatic, Normocephalic Neck: Supple Respiratory: Clear to auscultation bilaterally, Normal air movement Cardiovascular: No edema Capillary refill: <2 Seconds Gastrointestinal: Normal bowel sounds, Soft and benign Musculoskeletal: No clubbing Integumentary: No rashes Neurological: Normal gait, Normal speech Lymphatics: No axilla or inguinal lymphadenopathy Laboratory Data at Discharge: WBC 5.00 thou/uL (4.3-10.9) 01/12/25 06:10 Hgb 10.1 g/dL (12.0-15.0) L D 01/12/25 06:10 Hct 29.6 % (36.0-45.0) L 01/12/25 06:10 Plt Count 247 thou/uL (152-406) 01/12/25 06:10 PT 14.6 SECONDS (10-13.0) H 01/11/25 09:51 INR 1.30 01/11/25 09:51 Sodium 137 mEq/L (136-145) 01/12/25 06:10 Potassium 4.0 mEq/L (3.5-5.1) D 01/12/25 06:10 BUN 7 mg/dL (7-18) 01/12/25 06:10 Creatinine 0.50 mg/dL (0.55-1.02) L 01/12/25 06:10 Glucose 114 mg/dL (74-106) H 01/12/25 06:10 Magnesium 2.0 mg/dL (1.6-2.4) 01/12/25 06:10 Total Bilirubin 0.5 mg/dL (0.2-1.0) 01/12/25 06:10 AST 11 U/L (15-37) L 01/12/25 06:10 ALT 17 U/L (13-56) 01/12/25 06:10 Alkaline Phosphatase 50 U/L (45-117) 01/12/25 06:10 Triglycerides 76 mg/dL (<150) 01/12/25 06:10 Cholesterol 180 mg/dL (<200) 01/12/25 06:10 HDL Cholesterol 58 mg/dL (40-60) 01/12/25 06:10 Cholesterol/HDL Ratio 3.10 01/12/25 06:10 Home Medications: Escitalopram Oxalate 10 mg PO DAILY 01/11/25 levoFLOXacin [Levaquin] 750 mg PO DAILY 7 Days #7 tab 01/13/25 New Medications: levoFLOXacin [Levaquin] 750 mg PO DAILY 7 Days #7 tab Followup: Stephanie Diaz FNP [Primary Care Provider] - 1-2 Weeks
--- NOTE | 2025-01-13 12:21 | P.CNS ---
Date of Consult: 01/13/25 Reason for Consult: Pneumonia Chief Complaint: Right middle lobe pneumonia History of Present Illness: Patient is 59 years of age previously healthy admitted with right lower lobe pneumonia problem started last Sunday with cough congestion became worse end ed up here in the hospital patient was found to be hypoxic with a right mid to lower lobe infiltrate no prior history of cardiopulmonary disorders has a history of depression takes Lexapro still has some cough congestion little hypoxic Allergies No Known Allergies Allergy (Unverified 10/25/16 13:14) Home Medications: Escitalopram Oxalate 10 mg PO DAILY 01/11/25 levoFLOXacin [Levaquin] 750 mg PO DAILY 7 Days #7 tab 01/13/25 - Past Medical/Surgical History Diabetic: No -: Depression -: - Family History Father Family History: Reviewed- Non-Contributory - Social History Alcohol use: No CD- Drugs: No Review of Systems 10-point ROS is otherwise unremarkable General: Weakness Respiratory: Cough, Shortness of Breath Physical Examination Temp Pulse Resp BP Pulse Ox 97.9 F 64 20 133/64 92 01/13/25 08:00 01/13/25 08:00 01/13/25 08:00 01/13/25 08:00 01/13/25 08:00 General: Alert, Oriented x3 Respiratory: Clear to auscultation bilaterally, Crackles/rales (Crackles on the right base) Cardiovascular: No edema, Regular rate/rhythm, Normal S1 S2 - Problems (1) Right lower lobe pneumonia Current Visit: Yes Status: Acute Plan: Patient is 59 years of age previously healthy no prior history of cardiopulmonary disorders does not smoke admitted with acute onset of right lower lobe pneumonia most likely pneumococcal can be discharged home on levofloxacin 750 mg daily for 5 to 7 days labs chemistries reviewed white count is normal ambulate sats appear to be satisfactory on room air follow-up with me in 3 to 4 weeks she does have a history of asthma does not use any bronchodilators on a scheduled basis CT scan chest x-ray reviewed Qualifiers: Pneumonia type: due to unspecified organism Qualified Code(s): J18.9 - Pneumonia, unspecified organism
[2025-01-13 12:34] VITALS: BP 132/63; TEMP 98
== END 2025-01-13 13:03 | disposition home or self-care (01) | DRG 195 ==
LOC: ER 08:33 → ERHOLD 10:45 → 2ND 16:01
PROVIDERS: ADMIT Hospitalist; ATTEND Family Medicine
PROC: 4A033R1 Measurement of Arterial Saturation, Peripheral, Percutaneous Approach (ICD-10-PCS; principal; 2025-01-12)
DX: J12.9 Viral pneumonia, unspecified (principal); E87.6 Hypokalemia; Z87.891 Personal history of nicotine dependence
CPT/HCPCS: 36415; 36600; 71046; 71260; 80048; 80053; 80061; 80076; 82805; 83036; 83605; 83735; 83880; 84145; 84484; 85025; 85610; 87040; 93005; 94640; 94760; 96365; 96366; 96367; 96368; 96375; 99285; J0696; J1650; J2405; J2919; J7030; J7050; J7512; J7613; J7614; J7644